=== PATIENT | female | born 2000 | race Caucasian/White ===

== ENCOUNTER 2021-09-26 11:19 | Outpatient (REF) | payer BC, SELFPAY ==
[2021-09-26 12:31] LABS: Thyroid Stimulating Hormone* 0.787 uIU/mL (0.270-4.20)
[2021-09-27 12:56] LABS: Total T3 115 ng/dL (80-200)
== END 2021-09-26 11:20 | disposition home or self-care (01) ==
LOC: NPINS 11:19
DX: E03.9 Hypothyroidism, unspecified (principal)
CPT/HCPCS: 84439; 84443; 84480

== ENCOUNTER 2021-12-04 16:32 | Outpatient (RCR) | payer BC, SELFPAY ==
--- OUTSIDE RECORDS SUMMARY | 2021-12-04 16:37 | XMS_ITS | Clinical Summary ---
:2000 Author Organization [facility] [place] [address] Care Team Providers Name Role Phone Pcp, No Primary Care Provider Unavailable Allergies No known active allergies Medications Medication Sig Dispensed Refills Start Date End Date Status desvenlafaxine 0 05/16/2020 Acti ve succinate (PRISTIQ) 100 mg extended release tablet desvenlafaxine desvenlafaxine succinate ER 25 mg tablet,extende d release 24 hr 0 Active succinate (PRISTIQ) TAKE 1 TABLET BY MOUTH EVER Y MORNING FOR 1 WEEK THEN TAKE 2 TABLETS BY MOUTH DAILY 25 mg extended release tablet hydrOXYzine HCL hydroxyzine HCl 25 mg tablet 0 Active (ATARAX) 25 mg TK 1 T PO Q 6 H PRN tablet Estarylla 0.25-35 Take 1 Tablet by 0 04/26/2020 Active mg-mcg tablet mouth once daily. 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 06/24/2012 Diplopia 06/24/2012 Congenital hypothyroidism 2000 Immunizations Name Administration Dates Next Due Dtap-5 Pertussis Antigens 10/08/2005, 12/10/2001, 03/09/2001 , 01/27/2001, 2000 Hepatitis B (Peds) 06/04/2001, 2000, 2000 Hib Conjugate, Unspecified 09/08/2001, 01/27/2001, 1 Influenza, IIV4 12/20/2019 Influenza, IIV4 (=>6mos) MDV 12/09/2018 MMR 10/08/2005, 09/09/2002 Pneumococcal Poly,23-Valent 12/10/2001, 06/04/2001, 11/25/19 01 (Pneumovax) Polio Virus, Unspecified 10/08/2005, 03/18/2002, 03/09/2001, 2000 Tuberculin (PPD) 10/08/2005, 09/09/2002 Varicella Vaccine 09/08/2001 Social History Tobacco Use Types Packs/Day Years Used Date Never Smoker Smokeless Tobacco: Never Used Tobacco Cessation: Counseling Given: Yes Alcohol Use Standard Drinks/Week Comments Not Currently 0 (1 standard drink = 0.6 oz pure alcoho l) Alcohol Habits Answer Date Recorded How often do you have a drink containing alcohol? Monthly or less 11/12/2019 How many drinks containing alcohol do you have on a 1 or 2 11/12/2019 typical day when you are drinking? How often do you have six or more drinks on one Not asked occasion? Comment: Not asked Sex Assigned at Date Recorded Not on file Obstetrics History Para Term AB IAB SAB Ectopic Multiple Living Live Births 0 0 0 0 0 0 0 0 0 0 0 Last Filed Vital Signs Vital Sign Reading Time Taken Comments Blood Pressure 137/82 05/22/2020 11:19 AM CDT Pulse 77 05/22/2020 11:19 AM CDT Temperature - - Respiratory Rate - - Oxygen Saturation 98% 05/22/2020 11:19 AM CDT Inhaled Oxygen Concentration - - Weight 83.5 kg (184 lb) 05/22/2020 11:19 AM CDT Height 162 cm (5' 3.78) 05/22/2020 11:19 AM CDT Body Mass Index 31.8 05/22/2020 11:19 AM CDT Plan of Treatment Health Maintenance Due Date Last Done Comments COVID-19 vaccine series (#1) 03/08/2001 HPV series for age 9-26 (1 - 09/06/2011 2-dose series) Tdap 09/06/2011 Hepatitis C screening for 2018 age 18-79 Tetanus booster 2020 Depression screening for age 1101/13/2021 01/14/2020, 020, 12+ 01/11/2020, Additional history exists BMI (ht and wt on same day) 05/22/2021 05/22/2020, 01/11/20 20, for age 18+ 12/30/2019, Additional history exists Pap test for age 21-65 2021 Influenza for age 9-49 11/01/2021 12/20/2019, 12/09/2018 Meningococcal series for age Aged Out No longer eligible 11-21 based on patient 's age to complete this topic Results Not on filefrom Last 3 Months Insurance Payer Benefit Plan / Subscriber ID Effective Dates Phone Addre ss Type Group BLUE CROSS BL[employer] OF [id number] 2018-Present [address] [address] [place] [address] Care Teams Professional Nurse Relationship Specialty Start Date End Date Pcp, No PCP - General 11/12/19 .
== END 2022-02-03 12:25 | disposition home or self-care (01) ==
LOC: LAB 16:32
DX: R63.5 Abnormal weight gain (principal); E03.9 Hypothyroidism, unspecified; R53.83 Other fatigue; Z13.29 Encounter for screening for other suspected endocrine disorder
CPT/HCPCS: 36415

== ENCOUNTER 2022-03-11 15:07 | Outpatient (CLI) | payer BC, SELFPAY | END 2022-03-11 15:08 | disposition home or self-care (01) | DX: E03.9 Hypothyroidism, unspecified (principal); R53.83 Other fatigue | CPT/HCPCS: 36415; 84443 ==

== ENCOUNTER 2022-04-22 09:55 | Outpatient (CLI) | payer BC, SELFPAY | END 2022-04-22 09:56 | disposition home or self-care (01) | DX: N89.8 Other specified noninflammatory disorders of vagina (principal); Z86.39 Personal history of other endocrine, nutritional and metabolic disease | CPT/HCPCS: 36415; 84443; 87070 ==